=== PATIENT | male | born 1995 | race African-American/Black ===

== ENCOUNTER 2022-09-11 11:38 | Emergency (ER) | payer SELFPAY ==
--- NOTE | 2022-09-11 13:13 | RAD REPORT ---
EXAM DESCRIPTION: RAD - Chest Single View - 09/11/2022 1:00 pm CLINICAL HISTORY: CHEST PAIN Chest pain. COMPARISON: <Comparisons> FINDINGS: Portable technique limits examination quality. The lungs are grossly clear. The heart is normal in size. No displaced fractures. IMPRESSION: No acute intrathoracic process suspected.
[2022-09-11 13:36] LABS: Absolute Lymphocytes (CBC) 1.6 K/uL (0.7-4.9); Hematocrit 42.8 % (39.6-49.0); Lymphocytes % 23.7 % (15.3-44.8); MCV 80.7 fL (80-100); MPV 7.7 fL (7.6-11.3); RBC Red Blood Cell Count 5.31 M/uL (4.33-5.43)
[2022-09-11 13:53] LABS: SARS-CoV-2 Antigen Rapid Res Negative (Negative)
[2022-09-11 13:54] LABS: Albumin 4.3 g/dL (3.4-5.0); Bilirubin Total 0.8 mg/dL (0.2-1.0); Magnesium 2.3 mg/dL (1.6-2.4); Potassium 3.6 mEq/L (3.5-5.1); Protein, Total 8.2 g/dL (6.4-8.2); Troponin High Sensitivity 6.1 pg/mL (<58.9)
[2022-09-11] MEDS ORDERED: predniSONE 20 MG TAB ONE (14:28)
[2022-09-11] MEDS ORDERED: IPRATROPIUM BROM 0.5MG/2.5ML ONE (14:29)
[2022-09-11] MEDS ORDERED: ONDANSETRON 4 MG/2 ML VIAL ONE (14:29)
[2022-09-11] MEDS ORDERED: ALBUTEROL 2.5 MG/3 ML NEB SOL ONE (14:29)
--- NOTE | 2022-09-11 15:28 | EDPHYS ---
Physician Documentation [facility] Name: Hoang Choi Age: 26 yrs Sex: Male : 1995 Arrival Date: 09/11/2022 Time: 11:38 Bed 16 Private MD: ED Physician Erica Oliver HPI: 09/11 15:48 This 26 yrs old Black Male presents to ER via EMS with complaints of Nausea/Vomiting, kb Chest Pain. 15:48 The patient presents to the emergency department with nausea, vomiting. Onset: The kb symptoms/episode began/occurred 6 day(s) ago. Possible causes: unknown. The symptoms are aggravated by nothing. The symptoms are alleviated by nothing. Associated signs and symptoms: Pertinent positives: nausea, vomiting, chest pain, shortness of breath, cough. Severity of symptoms: At their worst the symptoms were moderate in the emergency department the symptoms are unchanged. The patient has not experienced similar symptoms in the past. The patient has not recently seen a physician. Historical: - Allergies: 12:50 No Known Drug Allergies; ph - PMHx: 12:50 acid reflux; Asthma; ph - Immunization history:: Adult Immunizations unknown. - Social history:: Smoking status: Reported history of juuling and/or vaping. ROS: 15:48 Constitutional: Negative for fever, chills, and weight loss. kb 15:48 Cardiovascular: Positive for chest pain, Negative for edema, orthopnea, palpitations, paroxysmal nocturnal dyspnea. 15:48 Respiratory: Positive for cough, shortness of breath, wheezing. 15:48 Abdomen/GI: Positive for nausea and vomiting, Negative for abdominal pain. 15:48 All other systems are negative. Exam: 13:53 Constitutional: This is a well developed, well nourished patient who is awake, alert, kb and in no acute distress. Head/Face: Normocephalic, atraumatic. ENT: Moist Mucous membranes Neck: Trachea midline, no thyromegaly or masses palpated, and no cervical lymphadenopathy. Supple, full range of motion without nuchal rigidity, or vertebral point tenderness. No Meningismus. Cardiovascular: Regular rate and rhythm with a normal S1 and S2. No gallops, murmurs, or rubs. No pulse deficits. Respiratory: Respirations even and unlabored. No increased work of breathing. Talking in full sentences Abdomen/GI: Soft, non-tender. No distention Skin: Warm, dry with normal turgor. Normal color. MS/ Extremity: Pulses equal, no cyanosis. Neurovascular intact. Full, normal range of motion. Neuro: Awake and alert, GCS 15, oriented to person, place, time, and situation. Moves all extremities. Normal gait. Psych: Awake, alert, with orientation to person, place and time. Behavior, mood, and affect are within normal limits. 13:53 ECG was reviewed by the Attending Physician. Vital Signs: 12:49 BP 137 / 84; Pulse 58; Resp 18; Temp 98; Pulse Ox 100% on R/A; Weight 90.72 kg; Height ph 5 ft. 7 in. ; 13:28 BP 139 / 93; Pulse 57; Resp 18; Temp 98.2(IR); Pulse Ox 98% on R/A; eh3 14:30 BP 151 / 93; Pulse 64; Resp 18; Pulse Ox 99% on R/A; eh3 15:30 BP 150 / 85; Pulse 68; Resp 18; Pulse Ox 100% on R/A; eh3 12:49 Body Mass Index 31.32 (90.72 kg, 170.18 cm) ph MDM: 12:10 Patient medically screened. kb 15:48 Data reviewed: vital signs, nurses notes. kb 15:49 Differential diagnosis: viral gastroenteritis, abnormal EKG, MT, dehydration, kb bronchitis, asthma exacerbation. Counseling: I had a detailed discussion with the patient and/or guardian regarding: the historical points, exam findings, and any diagnostic results supporting the discharge/admit diagnosis, lab results, radiology results, the need for outpatient follow up, a family practitioner, to return to the emergency department if symptoms worsen or persist or if there are any questions or concerns that arise at home. Response to treatment: the patient's symptoms have markedly improved after treatment. 09/11 12:26 Order name: CBC with Diff; Complete Time: 13:51 kb 09/11 12:26 Order name: D-Dimer; Complete Time: 13:51 kb 09/11 12:26 Order name: Magnesium; Complete Time: 13:54 kb 09/11 12:26 Order name: Troponin HS; Complete Time: 13:54 kb 09/11 12:26 Order name: CMP; Complete Time: 13:54 kb 09/11 12:26 Order name: Flu; Complete Time: 13:54 kb 09/11 12:26 Order name: SARS-COV-2 Antigen Rapid; Complete Time: 13:54 kb 09/11 12:26 Order name: XRAY Chest (1 view); Complete Time: 13:13 kb 09/11 12:26 Order name: EKG; Complete Time: 12:27 kb 09/11 12:26 Order name: Cardiac monitoring; Complete Time: 13:27 kb 09/11 12:26 Order name: EKG - Nurse/Tech; Complete Time: 13:27 kb 09/11 12:26 Order name: IV Saline Lock; Complete Time: 13:27 kb 09/11 12:26 Order name: Labs collected and sent; Complete Time: 13:27 kb 09/11 12:26 Order name: O2 Per Protocol; Complete Time: 13:16 kb 09/11 12:26 Order name: O2 Sat Monitoring; Complete Time: 13:16 kb 09/11 13:55 Order name: PO challenge; Complete Time: 15:42 kb EC:53 Rate is 55 beats/min. Rhythm is regular. QRS [place] is Normal. CA interval is normal at kb 138 msec. QRS interval is normal at 98 msec. QT interval is normal at 417 msec. Administered Medications: 14:45 Drug: Albuterol Inhalation 2.5 mg Route: Inhalation; 3 14:45 Drug: Ipratropium Inhalation Aerosol 0.5 mg Route: Inhalation; eh3 14:45 Drug: predniSONE PO 40 mg Route: PO; eh3 15:44 Follow up: Response: No adverse reaction 3 14:45 Drug: Ondansetron IVP 4 mg Route: IVP; Site: left antecubital; 3 15:44 Follow up: Response: Nausea is decreased eh3 15:44 Not Given (Patient Refused): NS 0.9% IV 1000 ml IV at 1000 ml once eh3 Disposition Summary: 09/11/22 15:28 Discharge Ordered Location: Home kb Condition: Stable kb Diagnosis - Acute bronchitis, unspecified kb - Nausea with vomiting, unspecified kb Followup: kb - With: Emergency Department - When: As needed - Reason: Worsening of condition Followup: kb - With: Private Physician - When: 2 - 3 days - Reason: Recheck today's complaints, Continuance of care, Re-evaluation by your physician Discharge Instructions: - Discharge Summary Sheet kb - Nausea and Vomiting, Adult, [id number] kb - Acute Bronchitis, Adult, [id number] kb Forms: - Medication Reconciliation Form kb - Thank You Letter kb - Antibiotic Education kb - Prescription Opioid Use kb Prescriptions: - ondansetron 4 mg Oral Tablet,disintegrating - take 1 tablet by ORAL route every 6 hours As needed; 12 tablet; Refills: 0, kb Product Selection Permitted - Prednisone 20 mg Oral Tablet - take 1 tablet by ORAL route once daily for 5 days; 5 tablet; Refills: 0, kb Product Selection Permitted Signatures: Dispatcher [employer] EDME Akua Christensen, [employer] C[employer]-C Belen Hebert RN RN Gabby Mascorro RN RN 3 Corrections: (The following items were deleted from the chart) 15:48 15:48 Respiratory: Positive for cough, wheezing, kb kb
--- NOTE | 2022-09-11 15:28 | ER ---
Nurse's Notes [facility] Name: Hoang Choi Age: 26 yrs Sex: Male : 1995 Arrival Date: 09/11/2022 Time: 11:38 Bed 16 Private MD: Diagnosis: Acute bronchitis, unspecified;Nausea with vomiting, unspecified Presentation: 09/11 12:46 Chief complaint:. ph 12:49 Chief complaint: Patient states: Cough, N/V, dizziness, chest pain, and SOB x 6 days, ph VSS. Coronavirus screen: Vaccine status: Patient reports receiving the 2nd dose of the covid vaccine. Ebola Screen: No symptoms or risks identified at this time. Initial Sepsis Screen: Does the patient meet any 2 criteria? No. Patient's initial sepsis screen is negative. Does the patient have a suspected source of infection? No. Patient's initial sepsis screen is negative. Risk Assessment: Do you want to hurt yourself or someone else? Patient reports no desire to harm self or others. Onset of symptoms was September 11, 2022. 12:49 Method Of Arrival: EMS: [facility] ph 12:49 Acuity: AL 3 ph Historical: - Allergies: 12:50 No Known Drug Allergies; ph - PMHx: 12:50 acid reflux; Asthma; ph - Immunization history:: Adult Immunizations unknown. - Social history:: Smoking status: Reported history of juuling and/or vaping. Screenin:28 [facility] ED Fall Risk Assessment (Adult) Score/Fall Risk Level 0 - 2 = Low Risk. Abuse eh3 screen: Denies threats or abuse. Denies injuries from another. Nutritional screening: No deficits noted. Tuberculosis screening: No symptoms or risk factors identified. Assessment: 13:00 General: Appears in no apparent distress. uncomfortable, Behavior is cooperative, eh3 appropriate for age. Pain: Complains of pain in chest and abdomen. Neuro: Level of Consciousness is awake, alert, obeys commands, Oriented to person, place, time, situation. Cardiovascular: Capillary refill < 3 seconds Patient's skin is warm and dry. Cardiovascular: Reports chest pain. Respiratory: Airway is patent Respiratory effort is even, unlabored, Respiratory pattern is regular, symmetrical. GI: Abdomen is round non-distended, Reports intolerance of fluids, intolerance of food, nausea, vomiting. : No signs and/or symptoms were reported regarding the genitourinary system. EENT: No signs and/or symptoms were reported regarding the EENT system. Derm: Skin is pink, warm \T\ dry. Musculoskeletal: No signs and/or symptoms reported regarding the musculoskeletal system. 14:00 Reassessment: Patient appears in no apparent distress at this time. Patient and/or eh3 family updated on plan of care and expected duration. Pain level reassessed. Patient is alert, oriented x 3, equal unlabored respirations, skin warm/dry/pink. 15:00 Reassessment: Patient appears in no apparent distress at this time. Patient and/or eh3 family updated on plan of care and expected duration. Pain level reassessed. Patient is alert, oriented x 3, equal unlabored respirations, skin warm/dry/pink. 15:45 Reassessment: Pt does not want to wait for NS bolus to infuse, states he will hydrate eh3 at home with PO fluids. Vital Signs: 12:49 BP 137 / 84; Pulse 58; Resp 18; Temp 98; Pulse Ox 100% on R/A; Weight 90.72 kg; Height ph 5 ft. 7 in. ; 13:28 BP 139 / 93; Pulse 57; Resp 18; Temp 98.2(IR); Pulse Ox 98% on R/A; eh3 14:30 BP 151 / 93; Pulse 64; Resp 18; Pulse Ox 99% on R/A; eh3 15:30 BP 150 / 85; Pulse 68; Resp 18; Pulse Ox 100% on R/A; eh3 12:49 Body Mass Index 31.32 (90.72 kg, 170.18 cm) ph ED Course: 11:45 Patient arrived in ED. am2 12:07 Akua Christensen FNP-C is PHCP. kb 12:07 Erica Oliver MD is Attending Physician. kb 12:50 Triage completed. ph 12:50 Arm band placed on Patient placed in an exam room, on a stretcher. ph 12:53 Gabby Mascorro, [place] is Primary Nurse. eh3 13:00 Inserted saline lock: 20 gauge in left antecubital area, using aseptic technique. Blood eh3 collected. 13:02 XRAY Chest (1 view) In Process Unspecified. EDMS 13:27 SARS-COV-2 Antigen Rapid Sent. eh3 13:27 Flu Sent. eh3 13:28 Patient has correct armband on for positive identification. Bed in low position. Call 3 light in reach. Side rails up X2. Client placed on continuous cardiac and pulse oximetry monitoring. NIBP monitoring applied. Door closed. Noise minimized. Lights dimmed. Warm blanket given. 15:46 No provider procedures requiring assistance completed. IV discontinued, intact, eh3 bleeding controlled, No redness/swelling at site. Pressure dressing applied. Administered Medications: 14:45 Drug: Albuterol Inhalation 2.5 mg Route: Inhalation; eh3 14:45 Drug: Ipratropium Inhalation Aerosol 0.5 mg Route: Inhalation; eh3 14:45 Drug: predniSONE PO 40 mg Route: PO; 3 15:44 Follow up: Response: No adverse reaction 3 14:45 Drug: Ondansetron IVP 4 mg Route: IVP; Site: left antecubital; 3 15:44 Follow up: Response: Nausea is decreased 3 15:44 Not Given (Patient Refused): NS 0.9% IV 1000 ml IV at 1000 ml once eh3 Medication: 15:47 VIS not applicable for this client. eh3 Outcome: 15:28 Discharge ordered by . randolph 15:48 Discharged to home ambulatory, with significant other. eh3 15:48 Condition: stable 15:48 Discharge instructions given to patient, Instructed on discharge instructions, follow up and referral plans. medication usage, Demonstrated understanding of instructions, follow-up care, medications, Prescriptions given X 2. 15:53 Patient left the ED. 3 Signatures: Dispatcher [employer] EDAkua Daly, Belen Penny, RN RN Sulma Choi Erin, [place] RN 3
[2022-09-11] MEDS ORDERED: NA CHLORIDE 0.9% 1,000 ML ONE (15:48)
[2022-09-11 16:48] VITALS: TEMP 98.2
[2022-09-11 16:55] VITALS: BP 150/85; O2SAT 100
--- NOTE | 2022-09-13 05:00 | EKG ---
Test Date: 2022-09-11 Test Time: 13:09:07 Office Helper: OLIVER MEASUREMENT RESULTS: Intervals: Rate: 55 GA: 138 QRSD: 98 QT: 436 QTc: 417 [place]: P: 72 GA: 138 QRS: 78 T: 73 INTERPRETIVE STATEMENTS: Sinus bradycardia Otherwise normal ECG Compared to ECG 09/06/2009 07:08:13 Sinus rhythm no longer present Left ventricular hypertrophy no longer present Electronically Signed On 09-13-22 04:54:50 CDT by Mark Bay
== END 2022-09-11 15:53 | disposition home or self-care (01) ==
LOC: ER 11:38
DX: J20.9 Acute bronchitis, unspecified (principal)
CPT/HCPCS: 36415; 71045; 80053; 83735; 84484; 85025; 85379; 87804; 87811; 93005; J2405; J7030; J7512; J7613; J7644

== ENCOUNTER 2024-04-07 16:02 | Emergency (ER) | payer OTHER, SELFPAY ==
--- NOTE | 2024-04-07 17:56 | RAD REPORT ---
EXAMINATION: ONE VIEW CHEST XR CLINICAL INDICATION: Male, 28 years old.,CHEST PAIN TECHNIQUE: Frontal chest projection is submitted. Examination is limited by patient positioning and t echnique. COMPARISON: 09/11/2022 FINDINGS: The lungs are well inflated and clear. No pneumothorax or sizable effusion. The heart is normal in s ize. Mediastinal contours are unremarkable. IMPRESSION: No acute intrathoracic abnormalities.
--- NOTE | 2024-04-07 17:57 | RAD REPORT ---
EXAMINATION: XR RIGHT SHOUDLER CLINICAL INDICATION: Male, 28 years old. PAIN RIGHT TECHNIQUE:Two view radiograph of the right shoulder were obtained. COMPARISON: No prior exam. FINDINGS: No bone or joint abnormality detected. IMPRESSION: No acute or significant abnormalities.
--- NOTE | 2024-04-07 18:28 | ER ---
Nurse's Notes [facility] Name: Hoang Choi Age: 28 yrs Sex: Male : 1995 Arrival Date: 04/07/2024 Time: 16:02 Bed 11 Private MD: Diagnosis: Strain of muscle and tendon of front wall of thorax-right upper chest Presentation: 04/07 16:21 Chief complaint: Patient states: pain to R clavicle x 2 weeks. No known injury. ss Coronavirus screen: Client denies travel out of the [place] in the last 14 days. Ebola Screen: Patient denies exposure to infectious person. Patient denies travel to an Ebola-affected area in the 21 days before illness onset. Initial Sepsis Screen: Does the patient meet any 2 criteria? No. Patient's initial sepsis screen is negative. Does the patient have a suspected source of infection? No. Patient's initial sepsis screen is negative. Risk Assessment: Do you want to hurt yourself or someone else? Patient reports no desire to harm self or others. Onset of symptoms was March 24, 2024. 16:21 Method Of Arrival: Ambulatory ss 16:21 Acuity: AL 4 ss Historical: - Allergies: 16:22 Latex, Natural Rubber; ss 16:22 Lexapro; ss - PMHx: 16:22 acid reflux; Asthma; ss - Immunization history:: Client reports receiving the 1st dose of the Covid vaccine. - Infectious Disease History:: Denies. - Social history:: Smoking status: Reported history of juuling and/or vaping. Screenin:30 [facility] ED Fall Risk Assessment (Adult) History of falling in the last 3 months, rs5 including since admission No falls in past 3 months (0 pts) Confusion or Disorientation No (0 pts) Intoxicated or Sedated No (0 pts) Impaired Gait No (0 pts) Mobility Assist Device Used No (0 pt) Altered Elimination No (0 pt) Score/Fall Risk Level 0 - 2 = Low Risk Oriented to surroundings, Maintained a safe environment. Abuse screen: Denies threats or abuse. Nutritional screening: No deficits noted. Tuberculosis screening: No symptoms or risk factors identified. Assessment: 16:28 Reassessment: PARKER Jacobo assessing patient in triage room at this time. ss 16:44 General: Appears in no apparent distress. uncomfortable, Behavior is calm, cooperative. rs5 Pain: Complains of pain in right clavicle Pain currently is 8 out of 10 on a pain scale. Quality of pain is described as aching, Is continuous. 16:44 Neuro: Level of Consciousness is awake, alert, obeys commands, Oriented to person, rs5 place, time, situation. Cardiovascular: Patient's skin is warm and dry. Respiratory: Airway is patent Respiratory effort is even, unlabored, Respiratory pattern is regular, symmetrical. GI: Abdomen is round non-distended, Abd is soft and non tender X 4 quads. : No signs and/or symptoms were reported regarding the genitourinary system. EENT: No signs and/or symptoms were reported regarding the EENT system. Derm: Skin is intact, Skin is pink, warm \T\ dry. Musculoskeletal: Range of motion: limited in right shoulder. 17:55 Reassessment: Patient and/or family updated on plan of care and expected duration. Pain rs5 level reassessed. Patient is alert, oriented x 3, equal unlabored respirations, skin warm/dry/pink. 18:26 Reassessment: Patient and/or family updated on plan of care and expected duration. Pain rs5 level reassessed. Patient is alert, oriented x 3, equal unlabored respirations, skin warm/dry/pink. 18:44 Reassessment: Patient and/or family updated on plan of care and expected duration. Pain rs5 level reassessed. Patient is alert, oriented x 3, equal unlabored respirations, skin warm/dry/pink. Vital Signs: 16:21 BP 144 / 77; Pulse 66; Resp 16; Temp 97.9(TE); Pulse Ox 98% on R/A; Weight 84.82 kg; ss Height 5 ft. 9 in. ; Pain 8/10; 18:26 BP 127 / 71; Pulse 71; Resp 17; Pulse Ox 99% on R/A; rs5 16:21 Body Mass Index 27.61 (84.82 kg, 175.26 cm) ss 16:21 Pain Scale: Adult ss ED Course: 16:05 Patient arrived in ED. al6 16:07 Brock Estrella PA is PHCP. cp 16:07 Jose Ochoa MD is Attending Physician. cp 16:22 Triage completed. ss 16:22 Arm band placed on left wrist. ss 16:30 Patient has correct armband on for positive identification. Bed in low position. Call rs5 light in reach. Side rails up X2. 16:30 No provider procedures requiring assistance completed. rs5 17:13 XRAY Chest (1 view) In Process Unspecified. EDMS 17:13 XRAY Shoulder RIGHT 2 view In Process Unspecified. EDMS 18:24 Lit Carney, RN is Primary Nurse. rs5 18:44 Patient did not have IV access during this emergency room visit. rs5 18:45 Provided Education on: discharge instructions . rs5 Administered Medications: 18:44 Drug: Ibuprofen PO 800 mg PO once Route: PO; rs5 18:44 Drug: Acetaminophen PO 1000 mg PO once Route: PO; rs5 18:44 Drug: Cyclobenzaprine PO 10 mg PO once Route: PO; rs5 Medication: 18:26 VIS not applicable for this client. rs5 Outcome: 18:27 Discharge ordered by MD. 18:44 Discharged to home ambulatory, with family, rs5 18:44 Condition: stable 18:44 Discharge instructions given to patient, family, Instructed on discharge instructions, follow up and referral plans. medication usage, Demonstrated understanding of instructions, follow-up care, medications, Prescriptions given X 2, 18:46 Patient left the ED. rs5 Signatures: Dispatcher [employer] EDKatherine Ayoub, RN RN Brock Brown PA PA cp Sotelo, Ricky, [place] RN rs5 Gely Douglass6
--- NOTE | 2024-04-07 18:28 | EDPHYS ---
Physician Documentation [facility] Name: Hoang Choi Age: 28 yrs Sex: Male : 1995 Arrival Date: 04/07/2024 Time: 16:02 Bed 11 Private MD: ED Physician Jose Ochoa HPI: 04/07 16:45 This 28 yrs old Black Male presents to ER via Ambulatory with complaints of collar bone cp maybe dislocated. 16:45 The patient or guardian reports chest pain that is located primarily in the anterior cp chest wall, right collarbone. The pain does not radiate. Modifying factors: the symptoms are aggravated by lifting and raising right arm. Severity of pain: in the emergency department the pain is unchanged. Patient denies any direct trauma to are, denies fall. Historical: - Allergies: 16:22 Latex, Natural Rubber; ss 16:22 Lexapro; ss - PMHx: 16:22 acid reflux; Asthma; ss - Immunization history:: Client reports receiving the 1st dose of the Covid vaccine. - Infectious Disease History:: Denies. - Social history:: Smoking status: Reported history of juuling and/or vaping. ROS: 16:50 Constitutional: history per hpi cp 16:50 Cardiovascular: Positive for chest pain, of the right collarbone, cp 16:50 Respiratory: Negative for cough, shortness of breath, wheezing, 16:50 Abdomen/GI: Negative for abdominal pain, vomiting, diarrhea, constipation, 16:50 Back: Negative for pain at rest, pain with movement, radiated pain, 16:50 All other systems are negative, Exam: 16:55 Constitutional: The patient appears in no acute distress, alert, awake, cp non-diaphoretic, non-toxic, well developed, well nourished, uncomfortable, 16:55 Head/Face: Normocephalic, atraumatic. cp 16:55 Neck: C-spine: appears grossly normal, no vertebral tenderness, no crepitus, ROM/movement: is normal, is supple, without pain, no range of motions limitations, 16:55 Chest/axilla: Inspection: normal, Palpation: crepitus, is not appreciated, tenderness, that is moderate, of the right supraclavicular area and right clavicle, 16:55 Cardiovascular: Rate: normal, Rhythm: regular, 16:55 Respiratory: the patient does not display signs of respiratory distress, Respirations: normal, no use of accessory muscles, no retractions, labored breathing, is not present, Breath sounds: are clear throughout, no decreased breath sounds, no stridor, no wheezing, 16:55 Abdomen/GI: Inspection: abdomen appears normal, Palpation: abdomen is soft and non-tender, in all quadrants, 16:55 Back: pain, is absent, ROM is normal, 16:55 Musculoskeletal/extremity: Extremities: noted in the right arm: There is no evidence of pain, tenderness, Vital Signs: 16:21 BP 144 / 77; Pulse 66; Resp 16; Temp 97.9(TE); Pulse Ox 98% on R/A; Weight 84.82 kg; ss Height 5 ft. 9 in. ; Pain 8/10; 18:26 BP 127 / 71; Pulse 71; Resp 17; Pulse Ox 99% on R/A; rs5 16:21 Body Mass Index 27.61 (84.82 kg, 175.26 cm) 16:21 Pain Scale: Adult ss MDM: 18:00 Differential diagnosis: chest wall pain, pleurisy, pneumonia, pneumothorax, pulmonary cp embolus. 18:26 Data reviewed: vital signs, nurses notes, radiologic studies, plain films, and as a cp result, I will discharge patient. 18:26 I considered the following discharge prescriptions or medication management in the emergency department Medications were administered in the Emergency Department. See MAR. Counseling: I had a detailed discussion with the patient and/or guardian regarding the historical points, exam findings, and any diagnostic results supporting the discharge/admit diagnosis, radiology results, to return to the emergency department if symptoms worsen or persist or if there are any questions or concerns that arise at home. Response to treatment: the patient's symptoms have mildly improved after treatment, and as a result, I will discharge patient. 18:27 Medical Screening Exam initiated 04/07 16:31 Order name: XRAY Chest (1 view); Complete Time: 18:18 04/07 18:19 Interpretation: Report review. 04/07 16:31 Order name: XRAY Shoulder RIGHT 2 view; Complete Time: 18:18 04/07 18:19 Interpretation: Reviewed. 04/07 18:26 Order name: Sling; Complete Time: 18:44 cp Administered Medications: 18:44 Drug: Ibuprofen PO 800 mg PO once Route: PO; rs5 18:44 Drug: Acetaminophen PO 1000 mg PO once Route: PO; rs5 18:44 Drug: Cyclobenzaprine PO 10 mg PO once Route: PO; rs5 Disposition: 04/08 14:36 Co-signature as Attending Physician, Jose SUH I reviewed the patient's care rn provided by the Advanced Practice Provider and agree with the diagnosis and treatment plan. Disposition Summary: 04/07/24 18:27 Discharge Ordered Notes: Location: Home cp Problem: new cp Symptoms: have improved cp Condition: Stable cp Diagnosis - Strain of muscle and tendon of front wall of thorax - right upper chest cp Followup: cp - With: Private Physician - When: 2 - 3 days - Reason: Worsening of condition Discharge Instructions: - Discharge Summary Sheet cp - Muscle Strain cp - Musculoskeletal Pain cp Forms: - Medication Reconciliation Form cp - Antibiotic Education cp - Prescription Opioid Use cp - Patient Portal Instructions cp - Leadership Thank You Letter cp Prescriptions: - Naprosyn 500 mg Oral tablet - take 1 tablet ORAL route 2 times per day take with food; 20 tablet; Refills: 0, cp Product Selection Permitted - Cyclobenzaprine 10 mg Oral tablet - take 1 tablet ORAL route every 8 hours As needed; 20 tablet; Refills: 0, cp Product Selection Permitted Signatures: Dispatcher [employer] Jose Cooley MD MD rn Blanchard, Shelby, RN RN ss Page, Corey, PA PA cp Lit Carney RN RN rs5 Corrections: (The following items were deleted from the chart) 04/07 16:31 16:31 Shoulder Right 2 View+RAD.RAD.[email or web address] ordered. [facility] 04/08 14:46 14:45 Constitutional: history per hpi cp cp
[2024-04-07] MEDS ORDERED: IBUPROFEN 400 MG TAB ONE (18:33)
[2024-04-07] MEDS ORDERED: CYCLOBENZAPRINE 10 MG TAB ONE (18:33)
[2024-04-07] MEDS ORDERED: ACETAMINOPHEN 500 MG TAB ONE (18:33)
[2024-04-07 19:29] VITALS: TEMP 97.9
[2024-04-07 19:31] VITALS: BP 127/71; O2SAT 99
== END 2024-04-07 18:46 | disposition home or self-care (01) ==
LOC: ER 16:02
DX: S29.011A Strain of muscle and tendon of front wall of thorax, initial encounter (principal)
CPT/HCPCS: 71045; 99283

== ENCOUNTER 2024-06-05 20:42 | Emergency (ER) | payer OTHER ==
[2024-06-05 21:58] LABS: Absolute Basophils 0.1 K/uL (0-0.5); Absolute Eosinophils 0.4 K/uL (0-0.5); Absolute Lymphocytes (CBC) 2.2 K/uL (0.7-4.9); Absolute Monocytes 1.2 K/uL (0.1-1.3); Absolute Neutrophil 8.9 K/uL (1.8-8.0); Basophils % 0.7 % (0-1.3); Eosinophils % 3.1 % (0-4.4); Hematocrit 40.4 % (39.6-49.0); Hemoglobin 13.2 g/dL (13.6-17.9); Lymphocytes % 16.8 % (15.3-44.8); MCH 26.5 pg (27.0-35.0); MCHC 32.7 g/dL (32.0-36.0); Monocytes % 9.8 % (3.3-12.3); Neutrophils % 69.6 % (41.7-73.7); Nucleated Red Blood Cells % 0.1 % (0-0); Platelets 304 thou/uL (152-406); RBC Red Blood Cell Count 4.99 M/uL (4.33-5.43); Red Cell Distribution Width 14.4 % (12.1-15.2)
[2024-06-05] MEDS ORDERED: ALBUTEROL 2.5 MG/3 ML NEB SOL ONE ×2 (22:02→23:34)
[2024-06-05] MEDS ORDERED: METHYLPREDNISOLONE 125 MG INJ ONE (22:02)
[2024-06-05] MEDS ORDERED: IPRATROPIUM BROM 0.5MG/2.5ML ONE ×2 (22:02→23:34)
[2024-06-05] MEDS ORDERED: GUAIFENESIN/DM 5 ML UCUP ONE (22:03)
[2024-06-05] MEDS ORDERED: Magnesium Sulfate 2gm IVPB 2 G/50 ML BAG IV ONE (22:03)
[2024-06-05 22:06] LABS: Albumin 4.2 g/dL (3.4-5.0); Albumin/Globulin Ratio 1.1 (1.1-1.8); Anion Gap 9.2 mEq/L (5.0-15.0); Bilirubin Total 0.4 mg/dL (0.2-1.0); Globulin 3.7 g/dL (2.3-3.5); Potassium 3.2 mEq/L (3.5-5.1); Protein, Total 7.9 g/dL (6.4-8.2)
--- NOTE | 2024-06-05 22:34 | RAD REPORT ---
EXAMINATION: TWO VIEW CHEST XR CLINICAL INDICATION: Male, 28 years old. [facility] Bed Name: [facility] TECHNIQUE: 2 view radiographs of the chest were performed. COMPARISON: 04/07/2024 FINDINGS: The lungs are well inflated and clear. No pneumothorax or sizable effusion. The heart is normal in si ze. Mediastinal contours are unremarkable. IMPRESSION: No acute or significant abnormalities.
--- NOTE | 2024-06-06 00:51 | EDPHYS ---
Physician Documentation [facility] Name: Hoang Choi Age: 28 yrs Sex: Male : 1995 Arrival Date: 06/05/2024 Time: 20:42 Bed 7 Private MD: ED Physician Kike Martinez HPI: 06/05 20:47 This 28 yrs old Black Male presents to ER via Unassigned with complaints of Asthma sp4 Exacerbation, Breathing Difficulty. 06/06 21:46 28-year-old male presents with acute worsening wheezing with associated cough. History sp4 of asthma. Historical: - Allergies: 06/05 21:23 Latex; iw 21:23 Lexapro; iw - PMHx: 21:23 acid reflux; Asthma; iw - PSHx: 21:23 None; iw - Immunization history:: Adult Immunizations not up to date. - Infectious Disease History:: Denies. - Social history:: Smoking status: Reported history of juuling and/or vaping. - Family history:: not pertinent. ROS: 06/06 21:46 Constitutional: Negative for fever, chills, and weight loss, sp4 All other systems are negative, Exam: 21:46 Constitutional: This is a well developed, well nourished patient who is awake, alert, sp4 and in no acute distress. Head/Face: Normocephalic, atraumatic. Eyes: Pupils equal round and reactive to light, extra-ocular motions intact. Lids and lashes normal. Conjunctiva and sclera are not injected. Cornea within normal limits. Periorbital areas with no swelling, redness, or edema. ENT: Nares patent. No nasal discharge, no septal abnormalities noted. Tympanic membranes are normal and external auditory canals are clear. Oropharynx with no redness, swelling, or masses, exudates, or evidence of obstruction, uvula midline. Mucous membranes moist. Neck: Trachea midline, no thyromegaly or masses palpated, and no cervical lymphadenopathy. Supple, full range of motion without nuchal rigidity, or vertebral point tenderness. Chest/axilla: Normal chest wall appearance and motion. Nontender with no deformity. No lesions are appreciated. Cardiovascular: Regular rate and rhythm with a normal S1 and S2. No gallops, murmurs, or rubs. Normal PMI, no JVD. No pulse deficits. Respiratory: Lungs have equal breath sounds bilaterally, bilateral expiratory wheezes in all lung figueroa. Dyspnea mild tachypnea Abdomen/GI: Soft, with normal bowel sounds. No distension or tympany. No guarding or rebound. No evidence of tenderness throughout. Back: No spinal tenderness. No costovertebral tenderness. Skin: Warm, dry with normal turgor. Normal color with no rashes, no lesions, and no evidence of cellulitis. MS/ Extremity: Pulses equal, no cyanosis. Neurovascular intact. Full, normal range of motion. Neuro: Awake and alert, GCS 15, oriented to person, place, time, and situation. Cranial nerves II-XII grossly intact. Motor strength 5/5 in all extremities. Sensory grossly intact. Psych: Awake, alert, with orientation to person, place and time. Behavior, mood, and affect are within normal limits Vital Signs: 06/05 21:21 BP 142 / 86; Pulse 70; Resp 19; Temp 97; Pulse Ox 99% on R/A; Weight 81.65 kg; Height 5 iw ft. 9 in. ; 22:00 BP 130 / 82; Pulse 75; Resp 19; Pulse Ox 99% on R/A; dd2 22:30 BP 133 / 59; Pulse 69; Resp 18; Pulse Ox 100% on Nebulizer Mask; dd2 23:00 BP 135 / 64; Pulse 84; Resp 17; Pulse Ox 99% on R/A; dd2 23:30 BP 133 / 76; Pulse 77; Resp 17; Pulse Ox 97% on R/A; dd2 06/06 01:11 BP 135 / 71; Pulse 81; Resp 17; Temp 97; Pulse Ox 98% on R/A; Pain 0/10; bm8 06/05 21:21 Body Mass Index 26.58 (81.65 kg, 175.26 cm) iw 06/06 01:11 Pain Scale: Adult bm8 [place] Coma Score: 06/05 22:40 Eye Response: spontaneous(4). Motor Response: obeys commands(6). Verbal Response: dd2 oriented(5). Total: 15. 06/06 01:11 Eye Response: spontaneous(4). Motor Response: obeys commands(6). Verbal Response: bm8 oriented(5). Total: 15. 21:46 Eye Response: spontaneous(4). Motor Response: obeys commands(6). Verbal Response: sp4 oriented(5). Total: 15. MDM: 06/05 23:06 Medical Screening Exam initiated sp4 06/06 21:46 Differential diagnosis: acute asthma, exercise-induced asthma, reactive airway, sp4 anaphylaxis, foreign body. Data reviewed: vital signs, nurses notes, lab test result(s), radiologic studies, plain films. Consideration of Admission/Observation Escalation of care including admission/observation considered. ED course: Patient has improved after medications. Patient stable for discharge home. 06/05 21:33 Order name: CBC with Diff; Complete Time: 23:06 sp4 06/05 21:33 Order name: CMP; Complete Time: 23:06 sp4 06/05 21:33 Order name: Chest Pa And Lat (2 Views) XRAY; Complete Time: 23:06 sp4 06/05 21:33 Order name: IV Saline Lock; Complete Time: 21:35 sp4 06/05 21:33 Order name: Labs collected and sent; Complete Time: 21:35 sp4 Administered Medications: 06/05 22:12 Drug: MethylPrednisoLONE IVP 125 mg IVP once Route: IVP; Site: left antecubital; dd2 23:39 Follow up: Response: No adverse reaction bm8 22:12 Drug: Dextromethorphan-Guaifenesin PO Liquid 10 mg-100 mg/5 mL 20 ml PO once Route: PO; dd2 23:38 Follow up: Response: No adverse reaction bm8 22:24 Drug: DuoNeb Nebulize (3:1) (2.5 mg - 0.5 mg) 3 ml Nebulizer once Route: Nebulizer; dd2 23:39 Follow up: Response: No adverse reaction bm8 22:24 Drug: Magnesium Sulfate IVPB 2 grams IVPB once over 2 hrs Route: IVPB; Infused Over: 2 dd2 hrs; Site: left antecubital; 06/06 01:12 Follow up: Response: No adverse reaction; IV Status: Completed infusion; IV Intake: bm8 100ml 06/05 23:38 Drug: DuoNeb Nebulize (3:1) (2.5 mg - 0.5 mg) 3 ml Nebulizer once Route: Nebulizer; 8 06/06 01:12 Follow up: Response: No adverse reaction bm8 01:09 Not Given (Patient Refused): albuterol2.5 mg Inhalation once bm8 01:09 Not Given (Patient Refused): ipratropiumaerosol 0.5 mg Inhalation once bm8 Disposition: 21:48 Chart complete. sp4 Disposition Summary: 06/06/24 00:50 Discharge Ordered Notes: Location: Home sp4 Problem: new sp4 Symptoms: have improved sp4 Condition: Stable sp4 Diagnosis - Mild intermittent asthma with (acute) exacerbation sp4 Followup: sp4 - With: Private Physician - When: 7 - 10 days - Reason: Recheck today's complaints Discharge Instructions: - Discharge Summary Sheet sp4 - Asthma, Adult sp4 Forms: - Patient Portal Instructions sp4 - Work release form bm8 Prescriptions: - Ventolin HFA 90 mcg/actuation Inhalation HFA Aerosol Inhaler - inhale 2 inhalation INHALATION route every 4 hours Dispense One inhaler with sp4 spacer , Use as directed PRN wheezing; 1 unit; Refills: 0, Product Selection Permitted - fluticasone propionate 110 mcg/actuation Inhalation HFA Aerosol Inhaler - inhale 110 microgram INHALATION route every 12 hours for 30 days Dispense one sp4 Ihalation Aerosol ,; 1 Kit; Refills: 0, Product Selection Permitted - Albuterol Sulfate 2.5 mg /3 mL (0.083 %) Inhalation Solution for Nebulization - inhale 1 unit NEBULIZATION route every 4 hours As needed PRN wheezing , sp4 Dispense 75 vials or Three boxes; 75 unit; Refills: 0, Product Selection Permitted - Prednisone 20 mg Oral Tablet - take 2 tablets ORAL route once daily for 5 days; 10 tablet; Refills: 0, Product sp4 Selection Permitted Signatures: Dispatcher [employer] Lissy Lynch, RN iKke Millard MD MD sp4 Alonso Santoyo RN RN bm8 CARMEN SOUZA RN RN dd2
--- NOTE | 2024-06-06 00:51 | ER ---
Nurse's Notes [facility] Name: Hoang Choi Age: 28 yrs Sex: Male : 1995 Arrival Date: 06/05/2024 Time: 20:42 Bed 7 Private MD: Diagnosis: Mild intermittent asthma with (acute) exacerbation Presentation: 06/05 21:21 Chief complaint: Spouse and/or significant other states: he has asthma ,he has taken iw his rescue inhaler and breathing treatments, and he is still SOB and has a cough, he was exposed to COVId, he has a doctor appt tomorrow. Coronavirus screen: Client presents with at least one sign or symptom that may indicate coronavirus-19. Ebola Screen: No symptoms or risks identified at this time. Initial Sepsis Screen: Does the patient meet any 2 criteria? No. Patient's initial sepsis screen is negative. Does the patient have a suspected source of infection? No. Patient's initial sepsis screen is negative. Risk Assessment: Do you want to hurt yourself or someone else? Patient reports no desire to harm self or others. Onset of symptoms was June 03, 2024. 21:21 Method Of Arrival: Ambulatory iw 21:21 Acuity: AL 4 iw 21:35 Acuity: AL 3 iw Triage Assessment: 06/06 01:13 Respiratory: Onset: The symptoms/episode began/occurred suddenly. bm8 Historical: - Allergies: 06/05 21:23 Latex; iw 21:23 Lexapro; iw - PMHx: 21:23 acid reflux; Asthma; iw - PSHx: 21:23 None; iw - Immunization history:: Adult Immunizations not up to date. - Infectious Disease History:: Denies. - Social history:: Smoking status: Reported history of juuling and/or vaping. - Family history:: not pertinent. Screenin:40 [facility] ED Fall Risk Assessment (Adult) History of falling in the last 3 months, dd2 including since admission No falls in past 3 months (0 pts) Confusion or Disorientation No (0 pts) Intoxicated or Sedated No (0 pts) Impaired Gait No (0 pts) Mobility Assist Device Used No (0 pt) Altered Elimination No (0 pt) Score/Fall Risk Level 0 - 2 = Low Risk Oriented to surroundings, Maintained a safe environment, Educated pt \T\ family on fall prevention, incl call for assistance when getting out of bed, Assessed \T\ reinforced patient's understanding of fall precautions, Hourly rounding (assess needs \T\ fall precautionary measures) done. Abuse screen: Denies threats or abuse. Nutritional screening: No deficits noted. Nutritional screening: No deficits noted. Tuberculosis screening: No symptoms or risk factors identified. Assessment: 22:40 General: Appears in no apparent distress. uncomfortable, Behavior is calm, cooperative, dd2 appropriate for age. Pain: Denies pain. Neuro: Level of Consciousness is awake, alert, obeys commands, Oriented to person, place, time, situation, Appropriate for age. Cardiovascular: Patient's skin is warm and dry. Rhythm is sinus rhythm. Respiratory: Reports shortness of breath at rest on exertion cough that is dry, labored breathing Airway is patent Respiratory effort is even, labored, Respiratory pattern is regular, symmetrical, Breath sounds with wheezes bilaterally. GI: No deficits noted. No signs and/or symptoms were reported involving the gastrointestinal system. : No deficits noted. No signs and/or symptoms were reported regarding the genitourinary system. EENT: No deficits noted. No signs and/or symptoms were reported regarding the EENT system. Derm: No deficits noted. No signs and/or symptoms reported regarding the dermatologic system. Musculoskeletal: No deficits noted. No signs and/or symptoms reported regarding the musculoskeletal system. Circulation, motion, and sensation intact. Range of motion: intact in all extremities. 06/06 01:11 Reassessment: Patient appears in no apparent distress at this time. Patient and/or bm8 family updated on plan of care and expected duration. Pain level reassessed. Patient is alert, oriented x 3, equal unlabored respirations, skin warm/dry/pink. Patient denies pain at this time. Patient states feeling better. Patient states symptoms have improved. Respiratory: Airway is patent Respiratory effort is even, unlabored, Respiratory pattern is regular, symmetrical, Breath sounds are clear bilaterally. the patient reports symptoms have resolved. Vital Signs: 06/05 21:21 BP 142 / 86; Pulse 70; Resp 19; Temp 97; Pulse Ox 99% on R/A; Weight 81.65 kg; Height 5 iw ft. 9 in. ; 22:00 BP 130 / 82; Pulse 75; Resp 19; Pulse Ox 99% on R/A; dd2 22:30 BP 133 / 59; Pulse 69; Resp 18; Pulse Ox 100% on Nebulizer Mask; dd2 23:00 BP 135 / 64; Pulse 84; Resp 17; Pulse Ox 99% on R/A; dd2 23:30 BP 133 / 76; Pulse 77; Resp 17; Pulse Ox 97% on R/A; dd2 06/06 01:11 BP 135 / 71; Pulse 81; Resp 17; Temp 97; Pulse Ox 98% on R/A; Pain 0/10; bm8 06/05 21:21 Body Mass Index 26.58 (81.65 kg, 175.26 cm) iw 06/06 01:11 Pain Scale: Adult bm8 [place] Coma Score: 06/05 22:40 Eye Response: spontaneous(4). Motor Response: obeys commands(6). Verbal Response: dd2 oriented(5). Total: 15. 06/06 01:11 Eye Response: spontaneous(4). Motor Response: obeys commands(6). Verbal Response: bm8 oriented(5). Total: 15. 21:46 Eye Response: spontaneous(4). Motor Response: obeys commands(6). Verbal Response: sp4 oriented(5). Total: 15. ED Course: 06/05 20:44 Patient arrived in ED. jj6 20:47 Kike Martinez MD is Attending Physician. sp4 21:22 Triage completed. iw 21:23 Arm band placed on. iw 21:35 Initial lab(s) drawn, by me, sent to lab. Inserted saline lock: 20 gauge in left iw antecubital area, using aseptic technique. Blood collected. Flushed with 10 mL NS. 22:19 Initial Neb Treatment Given as ordered Patient was instructed and evaluated on dd2 procedure. 22:20 Chest Pa And Lat (2 Views) XRAY In Process Unspecified. EDMS 22:22 CARMEN SOUZA, RN is Primary Nurse. dd2 22:40 Patient has correct armband on for positive identification. Bed in low position. Call dd2 light in reach. Side rails up X 1. Client placed on continuous cardiac and pulse oximetry monitoring. NIBP monitoring applied. Door closed. Noise minimized. Pillow given. Verbal reassurance given. 22:40 No provider procedures requiring assistance completed. Patient maintains SpO2 dd2 saturation greater than 95% on room air. 06/06 01:11 Provided Education on: post er care. bm8 01:11 IV discontinued, intact, bleeding controlled, No redness/swelling at site. Pressure bm8 dressing applied. Administered Medications: 06/05 22:12 Drug: MethylPrednisoLONE IVP 125 mg IVP once Route: IVP; Site: left antecubital; dd2 23:39 Follow up: Response: No adverse reaction bm8 22:12 Drug: Dextromethorphan-Guaifenesin PO Liquid 10 mg-100 mg/5 mL 20 ml PO once Route: PO; dd2 23:38 Follow up: Response: No adverse reaction bm8 22:24 Drug: DuoNeb Nebulize (3:1) (2.5 mg - 0.5 mg) 3 ml Nebulizer once Route: Nebulizer; dd2 23:39 Follow up: Response: No adverse reaction bm8 22:24 Drug: Magnesium Sulfate IVPB 2 grams IVPB once over 2 hrs Route: IVPB; Infused Over: 2 dd2 hrs; Site: left antecubital; 06/06 01:12 Follow up: Response: No adverse reaction; IV Status: Completed infusion; IV Intake: bm8 100ml 06/05 23:38 Drug: DuoNeb Nebulize (3:1) (2.5 mg - 0.5 mg) 3 ml Nebulizer once Route: Nebulizer; bm8 06/06 01:12 Follow up: Response: No adverse reaction bm8 01:09 Not Given (Patient Refused): albuterol2.5 mg Inhalation once bm8 01:09 Not Given (Patient Refused): ipratropiumaerosol 0.5 mg Inhalation once bm8 Medication: 06/05 22:40 VIS not applicable for this client. dd2 Intake: 06/06 01:12 IV: 100ml; Total: 100ml. bm8 Outcome: 00:50 Discharge ordered by MD. lee 01:11 Discharged to home ambulatory, with family, bm8 01:11 Condition: stable 01:11 Discharge instructions given to patient, family, Instructed on discharge instructions, follow up and referral plans. no drinking with medication, no driving heavy equipment, medication usage, safety practices, Demonstrated understanding of instructions, follow-up care, medications, Prescriptions given X 4, 01:13 Patient left the ED. bm8 Signatures: Dispatcher [employer] Lissy Lynch RN RN iw Kelle Holm jj6 Kike Martinez MD MD sp4 Alonso Santoyo RN RN bm8 CARMEN SOUZA RN RN dd2 Corrections: (The following items were deleted from the chart) 06/05 23:41 22:40 Respiratory: Airway is patent Respiratory effort is even, labored, Respiratory dd2 pattern is regular, symmetrical, Breath sounds with wheezes bilaterally. dd2
[2024-06-06 01:36] VITALS: TEMP 97
[2024-06-06 01:42] VITALS: BP 135/71; O2SAT 98
== END 2024-06-06 01:13 | disposition home or self-care (01) ==
LOC: ER 20:42
DX: J45.21 Mild intermittent asthma with (acute) exacerbation (principal)
CPT/HCPCS: 96365; 85025; 36415; 80053; 71046; 94640; 96375; 99285; 96366; J3475; J7613 ×2; J7644 ×2; J2919